=== PATIENT | male | born 1950 | race Caucasian/White ===

== ENCOUNTER → 2016-12-28 | Outpatient (CLI) | payer MEDICARE, OTHER | LOC: RAD 07:56 | PROVIDERS: ATTEND Specialist | DX: K76.89 Other specified diseases of liver (principal); R16.1 Splenomegaly, not elsewhere classified | CPT/HCPCS: 76705; 93976 ==

== ENCOUNTER 2017-01-09 08:25 | Day surgery (SDC) | payer MEDICARE, OTHER ==
[2017-01-09 09:24] LABS: PARTIAL THROMBOPLASTIN TIME 30.9 SEC (23.5-35.8)
[2017-01-09 09:26] LABS: HEMATOCRIT 34.5 % (37.9-51.0); HEMOGLOBIN 11.9 g/dL (13.5-17.0); HGB HCT DIFFERENCE 1.2; MEAN CORPUSCULAR HEMOGLOBIN 34.3 pg (27.0-33.4); MEAN CORPUSCULAR HGB CONC 34.6 g/dL (32.0-36.0); MEAN CORPUSCULAR VOLUME 99 fl (80-97); RED BLOOD COUNT 3.47 10^6/uL (4.35-5.55); RED CELL DISTRIBUTION WIDTH 13.8 % (11.5-14.0); WHITE BLOOD COUNT 2.4 10^3/uL (4.0-10.5)
[2017-01-09 09:37] LABS: BLOOD UREA NITROGEN 19 mg/dL (7-20); CREATININE RESULT 0.84 mg/dL (0.52-1.25)
[2017-01-09] MEDS ORDERED: FENTANYL CITRATE INJ/PF 100 MCG/2 ML AMPUL ONE (10:46)
[2017-01-09] MEDS ORDERED: MIDAZOLAM 2 MG/2 ML INJ ONE (10:46)
[2017-01-09 13:03] VITALS: BP 115/76
== END 2017-01-09 13:10 | disposition home or self-care (01) ==
LOC: RAD 08:25
PROVIDERS: ATTEND Specialist
PROC: 0FB13ZX Excision of Right Lobe Liver, Percutaneous Approach, Diagnostic (ICD-10-PCS; principal; 2017-01-09)
DX: K75.81 Nonalcoholic steatohepatitis (NASH) (principal); K74.0 Hepatic fibrosis
CPT/HCPCS: 36415; 82962; 84520; 82565; 85027; 85610; 85730; 88307 ×2; 88313 ×2; 77012; 47000; J2250; J3010

== ENCOUNTER → 2018-04-07 | Outpatient (CLI) | payer MEDICARE, OTHER ==
--- NOTE | 2018-04-07 09:25 | RADIOLOGY REPORT (SQ) ---
EXAM DESCRIPTION: U/S ABDOMEN LTD W/DOPPLER COMPLETED DATE/TIME: 04/07/2018 9:07 am REASON FOR STUDY: LIVER DISORDER, SPLENOMEGALY R16.1 SPLENOMEGALY, NOT ELSEWHERE CLASSIFIED K76.89 OTHER SPECIFIED DISEASES OF LIVER COMPARISON: 12/28/2016 TECHNIQUE: Dynamic and static grayscale images acquired of the abdomen and recorded on PACS. Additio nal selected color Doppler and spectral images recorded. LIMITATIONS: None. FINDINGS: PANCREAS: No masses. Visualized pancreatic duct normal caliber. LIVER: Heterogenous increased coarsened echotexture to the liver, likely related to the patient's kn own history of liver disease. The liver measures 16.7 cm, within upper limits of normal. LIVER VASCULATURE: Normal directional flow of the main portal vein and hepatic veins. GALLBLADDER: No stones. The gallbladder wall measures 3.0 mm, upper limits of normal wall thickness . No pericholecystic fluid. ULTRASOUND-DETECTED PAZ'S SIGN: Negative. INTRAHEPATIC DUCTS AND COMMON DUCT: CBD measures 3.0 mm in diameter, normal. The intrahepatic ducts normal caliber. No filling defects. INFERIOR VENA CAVA: Normal flow. AORTA: No aneurysm. RIGHT KIDNEY: The right kidney measures 12.1 cm in length, normal size. Normal echogenicity. No silvano d or suspicious masses. No hydronephrosis. No calcifications. PERITONEAL AND RIGHT PLEURAL SPACE: No ascites or effusions. OTHER: No other significant findings. IMPRESSION: 1 No significant interval changes since the prior examination dated 12/28/2016. 2. Heterogenous increased coarsened echotexture to the liver parenchyma, likely related to the patien t's underlying history of liver disease. TECHNICAL DOCUMENTATION: JOB ID: [id number] [employer] All Rights Reserved Reading location - IP/workstation name: [email or web address]
== END ==
LOC: RAD 08:32
PROVIDERS: ATTEND Internal Medicine Hematology & Oncology
DX: R16.1 Splenomegaly, not elsewhere classified (principal); K76.89 Other specified diseases of liver
CPT/HCPCS: 76705; 93976

== ENCOUNTER → 2018-04-15 | Outpatient (CLI) | payer MEDICARE, OTHER ==
--- NOTE | 2018-04-15 12:18 | RADIOLOGY REPORT (SQ) ---
EXAM DESCRIPTION: CT SOFT TISSUE NECK WITH COMPLETED DATE/TIME: 04/15/2018 10:49 am REASON FOR STUDY: DYSPHAGIA (R13.10), DYSPHONIA (R49.0) R13.10 DYSPHAGIA, UNSPECIFIED R49.0 DYSPHO MANDY COMPARISON: None. TECHNIQUE: Post IV contrasted scanning from skull base through lung apices with review of bone, soft tissue and lung windows. Reconstructed coronal and sagittal MPR images reviewed. All images stored on PACS. All CT scanners at this facility use dose modulation, iterative reconstruction, and/or weight based d osing when appropriate to reduce radiation dose to as low as reasonably achievable (ALARA). [facility]: Dose Right [facility]: CareDose [facility]: Dose Right [facility]: Teradose 4D [facility]: [place] CONTRAST TYPE AND DOSE: contrast/concentration: Isovue 370.00 mg/ml; Total Contrast Delivered: 75.0 ml; Total Saline Delivered: 55.0 ml RENAL FUNCTION: Creatinine 0.8 RADIATION DOSE: . LIMITATIONS: None. FINDINGS: SKULL BASE: Intact. MAJOR SALIVARY GLANDS: No solid or cystic masses. No inflammatory changes. LYMPHADENOPATHY: No adenopathy. MUCOSAL MASSES OR ASYMMETRY: No mucosal masses or asymmetry. LARYNX/CORDS: No abnormal findings. VASCULAR STRUCTURES: The major vessels are patent. LUNG APICES: Clear. BONES: Bony structures are osteopenic with bony ankylosis of the mid cervical vertebra. THYROID: Normal size. No masses. PARANASAL SINUSES: Clear. OTHER: No other significant finding. IMPRESSION: NO SIGNIFICANT FINDING IN THE SOFT TISSUES OF THE NECK. TECHNICAL DOCUMENTATION: JOB ID: [id number] Quality ID # [id number]: Final reports with documentation of one or more dose reduction techniques (e.g., Au tomated exposure control, adjustment of the mA and/or kV according to patient size, use of iterative reconstruction technique) 2010 [employer]- All Rights Reserved Reading location - IP/workstation name: [email or web address]
== END ==
LOC: RAD 10:14
PROVIDERS: ATTEND Internal Medicine Hematology & Oncology
DX: R13.10 Dysphagia, unspecified (principal); R49.0 Dysphonia
CPT/HCPCS: 70491

== ENCOUNTER → 2019-03-31 | Outpatient (CLI) | payer MEDICARE, OTHER ==
--- NOTE | 2019-03-31 12:44 | RADIOLOGY REPORT (SQ) ---
EXAM DESCRIPTION: MRI CERVICAL SPINE WITHOUT COMPLETED DATE/TIME: 03/31/2019 9:17 am REASON FOR STUDY: M50.30 OTHER CERVICAL DISC DEGENERATION, UNSP CERVICAL REGION M50.30 OTHER CERVIC AL DISC DEGENERATION, UNSP CERVICAL REGIO COMPARISON: 06/23/2016 TECHNIQUE: Sagittal and Axial imaging includes T1, T2, STIR and gradient echo sequences. LIMITATIONS: None. FINDINGS: ALIGNMENT: Normal. VERTEBRAE: Hemangiomas C3. BONE MARROW: Normal. No marrow replacement or reactive changes. DISCS: Loss of height and T2 signal C5-6. HARDWARE: None in the spine. CORD AND BASE OF BRAIN: Normal in size and signal intensity. SOFT TISSUES: No soft tissue masses. C1-C2: No significant spinal stenosis. C2-C3: Central disc osteophyte with mild flattening of the anterior thecal sac. C3-C4: Central disc on supra with mild anterior flattening of the thecal sac. C4-C5: No significant spinal stenosis or exit foraminal stenosis. C5-C6: Disc osteophyte complex more prominent peripheral. Mild narrowing of the left exit foramina. C6-C7: No significant spinal stenosis or exit foraminal stenosis. C7-T1: No significant spinal stenosis or exit foraminal stenosis. UPPER THORACIC: Incompletely imaged. No significant spinal stenosis or exit foraminal stenosis. OTHER: No other significant finding. IMPRESSION: Multilevel mild spondylosis. No significant spinal stenosis or exit foraminal stenosis. TECHNICAL DOCUMENTATION: JOB ID: [id number] [employer]- All Rights Reserved Reading location - IP/workstation name: [email or web address]
== END ==
LOC: RAD 08:38
PROVIDERS: ATTEND Physician Assistant
DX: M50.30 Other cervical disc degeneration, unspecified cervical region (principal); M47.892 Other spondylosis, cervical region
CPT/HCPCS: 72141

== ENCOUNTER 2020-07-18 09:39 | Day surgery (SDC) | payer MEDICARE, OTHER ==
[~2020-07-18 09:39] MED LIST: KETOROLAC TROMETHAMINE 0.45% 4 DROP/0.4 ML DROPERETTE OD PRN; LIDOCAINE 3.5% OPH GEL/PF 1 ML/TUBE OD PRN
[2020-07-18] MEDS ORDERED: MIDAZOLAM 2 MG/2 ML INJ ONE (10:22)
[2020-07-18] MEDS: TROPICAMIDE 1% OPH SOLN 15 ML OD PRN ×3 (11:14→11:38)
[2020-07-18] MEDS: TETRACAINE HCL 0.5% OPH SOLN 4 ML OD PRN ×3 (11:14→11:50)
[2020-07-18] MEDS: CYCLOPENTOLATE 0.2%/PHENYLEPHRINE 1% OPH SOLN 2 ML OD PRN ×3 (11:15→11:38)
[2020-07-18] MEDS: BESIFLOXACIN HCL 0.6% OPH SUSP 5 ML BOTTLE OD PRN ×4 (11:15→12:15)
[2020-07-18] MEDS: EPINEPHRINE INJ/PF 1 MG/1 ML AMPULE ONE ×2 (11:56→12:02)
[2020-07-18] MEDS: DORZOLAMIDE HCL 2%/TIMOLOL MALEAT 0.5% OPH SOLN 10 ML OD PRN ×2 (11:56→12:15)
[2020-07-18] MEDS: CHONDR SU A NA/HYALUR INTRAOC KIT (SURGICARE) ONE ×2 (11:56→12:02)
[2020-07-18] MEDS: LIDOCAINE 1%/PHENYLEPHRINE 1.5% 1 ML VIAL ONE ×2 (11:56→12:02)
--- NOTE | 2020-07-25 18:53 | Operative Report ---
Operative Report[facility] Operative Report: PREOPERATIVE DIAGNOSIS: Nuclear, cortical and posterior subcapsular cataract, right eye POSTOPERATIVE DIAGNOSIS: Nuclear, cortical and posterior subcapsular cataracts, right eye PROCEDURE: Phacoemulsification and posterior chamber intraocular lens implant, right eye PROCEDURE DATE: [July 18, 2020 ] SURGEON: Sarbjit Tafoya MD Next CENTRAL OFFICE EQUIPMENT ENGINEER: [] ANESTHESIA: Topical with IV sedation next COMPLICATIONS: None TISSUE TO PATHOLOGY: None ESTIMATED BLOOD LOSS: None INDICATION FOR SURGERY: [Mr. Moser is a 69 year old male] Who presents to our clinic complaining of difficulty seeing, to read and drive due to blurry vision in both eyes. On examination, she was found to have best corrected visual acuity of [20/30] in the right eye. Ophthalmoscopy revealed a [+2] nuclear, [+2] corneal degeneration, [trace] posterior subcapsular cataract in the right eye with normal appearing cornea, vitreous, retina and optic nerve. I discussed the findings of the exam with the patient. We discussed the risks, benefits and alternatives of cataract extraction and intraocular lens implant in the right eye as a means of improving her vision. Risks that were discussed with the patient include infection, bleeding, retinal detachment and possible need for additional surgery. The patient understands that she may need to wear glasses after surgery. After discussion, the patient indicated her interest in having this procedure performed by signing an informed witness consent form. REPORT OF PROCEDURE: On the day of surgery, the patient was given a topical application to the right eye to consist of drop of Tetracaine 0.5%, tropicamide 1%, Cyclomidril, Besivance 0.6% and Acular 0.45%. The patient was then taken to the operating room in a supine position in a standard eye bed. Intravenous sedation was administered and she was prepped and draped in the standard fashion. A timeout was performed to confirm the surgical site. Attention was directed to the right eye where a paracentesis was created at the 11:30 position at the corneal limbus with a 15 degree blade. The anterior chamber was filled with 0.3 mL of 1% methylparaben free lidocaine and after 30 seconds the anterior chamber was filled with viscoelastic material. A 3 plane corneal incision was then made at the 9 o'clock position at the cornea limbus with a keratome. A continuous curvilinear capsulorrhexis was then made in the anterior capsule of the lens with a cystotome. The lens was hydrodissected using balanced saline solution. The lens nucleus was then removed by phacoemulsification using the stop and chop technique. CDE [5.91 ]. The remaining cortical material was then removed from the posterior capsular bag using irrigation and aspiration. The posterior capsule bag was filled with viscoelastic material and a lens implant was inserted into the posterior capsule bag. I have chosen for this case is a one piece acrylic lens from [employer] model [[id number]], serial number [[id number]], lens power [25.0] The lens was removed from its package, inspected and found to be free of defects it was loaded into a [employer] D inse rter. The spooling operator was passed through the temporal wound and the lens was advanced into the posterior capsular bag. The lens implant was centered in the posterior capsular bag with the [place] spatula the viscoelastic material was removed from the eye using irrigation and aspiration. The wounds were closed by stromal hydration and they were tested with the Weck-Galina sponges and found to have no leaks. Intraocular pressure was assessed by manual palpitation found to be with in the physiologic range. The drape and speculum were removed. Drops of Durezol, Combigan and gatifloxacin were instilled in the right eye. The patient was then taken to the recovery room in good condition. The patient tolerated the procedure very well. The patient was given a prescription for gatifloxacin, Durezol and Ilervo to use every 2 hours while awake today. She will return my clinic tomorrow for follow-up evaluation.
== END 2020-07-18 12:57 | disposition home or self-care (01) ==
LOC: SC 09:39
PROVIDERS: ATTEND Ophthalmology
DX: H25.811 Combined forms of age-related cataract, right eye (principal); H53.022 Refractive amblyopia, left eye; I48.91 Unspecified atrial fibrillation; E11.36 Type 2 diabetes mellitus with diabetic cataract; E03.9 Hypothyroidism, unspecified; Z79.84 Long term (current) use of oral hypoglycemic drugs; Z79.899 Other long term (current) drug therapy
CPT/HCPCS: 66984; 00142; V2632; J2250; J3490 ×2; A9270; J0171; 142

== ENCOUNTER 2020-08-04 10:52 | Day surgery (SDC) | payer MEDICARE, OTHER ==
[~2020-08-04 10:52] MED LIST changes: +CHONDR SU A NA/HYALUR INTRAOC KIT (SURGICARE) ONE; +EPINEPHRINE INJ/PF 1 MG/1 ML AMPULE ONE; -KETOROLAC TROMETHAMINE 0.45% 4 DROP/0.4 ML DROPERETTE OD PRN; +KETOROLAC TROMETHAMINE 0.45% 4 DROP/0.4 ML DROPERETTE OS PRN; +LIDOCAINE 1%/PHENYLEPHRINE 1.5% 1 ML VIAL ONE; -LIDOCAINE 3.5% OPH GEL/PF 1 ML/TUBE OD PRN; +LIDOCAINE 3.5% OPH GEL/PF 1 ML/TUBE OS PRN
[2020-08-04] MEDS: TETRACAINE HCL 0.5% OPH SOLN 4 ML OS PRN ×3 (11:10→11:54)
[2020-08-04] MEDS: TROPICAMIDE 1% OPH SOLN 15 ML OS PRN ×3 (11:10→11:29)
[2020-08-04] MEDS: CYCLOPENTOLATE 0.2%/PHENYLEPHRINE 1% OPH SOLN 2 ML OS PRN ×3 (11:11→11:29)
[2020-08-04] MEDS: BESIFLOXACIN HCL 0.6% OPH SUSP 5 ML BOTTLE OS PRN ×4 (11:11→12:16)
[2020-08-04] MEDS ORDERED: FENTANYL CITRATE INJ/PF 100 MCG/2 ML AMPUL ONE (11:24)
[2020-08-04] MEDS ORDERED: MIDAZOLAM 2 MG/2 ML INJ ONE (11:24)
[2020-08-04] MEDS: PREDNISOLONE ACETATE 1% OPH SUSP 5 ML OS PRN ×2 (12:16)
[2020-08-04] MEDS: DORZOLAMIDE HCL 2%/TIMOLOL MALEAT 0.5% OPH SOLN 10 ML OS PRN ×2 (12:16)
--- NOTE | 2020-08-04 20:16 | Operative Report ---
Operative Report[facility] Operative Report: PREOPERATIVE DIAGNOSIS: Nuclear, cortical and posterior subcapsular cataract, left eye POSTOPERATIVE DIAGNOSIS: Nuclear, cortical and posterior subcapsular cataracts, left eye PROCEDURE: Phacoemulsification and posterior chamber intraocular lens implant, left eye PROCEDURE DATE: [August 04, 2020] SURGEON: Sarbjit Tafoya MD Next REGISTERED VASCULAR TECHNOLOGIST (RVT): [Keo Zarate] ANESTHESIA: Topical with IV sedation next COMPLICATIONS: None TISSUE TO PATHOLOGY: None ESTIMATED BLOOD LOSS: None INDICATION FOR SURGERY: [Mr. Moser is a 69 year old male] Who presents to our clinic complaining of difficulty seeing, to read and drive due to blurry vision in both eyes. On examination, she was found to have best corrected visual acuity of [20/200] in the left eye. Ophthalmoscopy revealed a [+2] nuclear, [+2] corneal degeneration, [trace] posterior subcapsular cataract in the left eye with normal appearing cornea, vitreous, retina and optic nerve. I discussed the findings of the exam with the patient. We discussed the risks, benefits and alternatives of cataract extraction and intraocular lens implant in the left eye as a means of improving her vision. Risks that were discussed with the patient include infection, bleeding, retinal detachment and possible need for additional surgery. The patient understands that she may need to wear glasses after surgery. After discussion, the patient indicated her interest in having this procedure performed by signing an informed witness consent form. REPORT OF PROCEDURE: On the day of surgery, the patient was given a topical application to the left eye to consist of drop of Tetracaine 0.5%, tropicamide 1%, Cyclomidril, Besivance 0.6% and Acular 0.45%. The patient was then taken to the operating room in a supine position in a standard eye bed. Intravenous sedation was administered and she was prepped and draped in the standard fashion. A timeout was performed to confirm the surgical site. Attention was directed to the left eye where a paracentesis was created at the 5:30 position at the corneal limbus with a 15 degree blade. The anterior chamber was filled with 0.3 mL of 1% methylparaben free lidocaine and after 30 seconds the anterior chamber was filled with viscoelastic material. A 3 plane corneal incision was then made at the 3 o'clock position at the cornea limbus with a keratome. A continuous curvilinear capsulorrhexis was then made in the anterior capsule of the lens with a cystotome. The lens was hydrodissected using balanced saline solution. The lens nucleus was then removed by phacoemulsification using the stop and chop technique. CDE [6.79 ]. The remaining cortical material was then removed from the posterior capsular bag using irrigation and aspiration. The posterior capsule bag was filled with viscoelastic material and a lens implant was inserted into the posterior capsule bag. I have chosen for this case is a one piece acrylic lens from [employer] model [[id number]], serial number [[id number]], lens power [25.0]. The lens was removed from its package, inspected and found to be free of defects it was loaded into a [employer] D bruise trimmer. The bruise trimmer was passed through the temporal wound and the lens was advanced into the posterior capsular bag. The lens implant was centered in the posterior capsular bag with the [place] spatula the viscoelastic material was removed from the eye using irrigation and aspiration. The wounds were closed by stromal hydration and they were tested with the Weck-Galina sponges and found to have no leaks. Intraocular pressure was assessed by manual palpitation found to be with in the physiologic range. The drape and speculum were removed. Drops of Durezol, Combigan and gatifloxacin were instilled in the left eye. The patient was then taken to the recovery room in good condition. The patient tolerated the procedure very well. The patient was given a prescription for gatifloxacin, Durezol and Ilervo to use every 2 hours while awake today. She will return my clinic tomorrow for follow-up evaluation.
--- OUTSIDE RECORDS SUMMARY | 2020-08-05 15:19 | XMS REPORT ---
:1950 [facility] [place] [facility] [place] [address] [place] [id number] Care Team Providers Name Role Phone Unavailable Unavailable Unavailable Allergies, Adverse Reactions, Alerts This patient has no known allergies or adverse reactions. Medications Ordered Filled Start Stop Current Ordering Indication Dosage Frequency Signature Comments Components Medication Medication Date Date Medication? Clinician (SIG) Name Name fenofibrate No 1capsul Q1D fenofibrat micronized e(s) e 200 mg micronized capsule 200 mg Take 1 capsule capsule Take 1 every day capsule by oral every day route for by oral 30 days. route for 30 days. glimepiride No 1 Q1D glimepirid 2 mg tablet e 2 mg Take 1 tablet tablet Take 1 every day tablet by oral every day route for by oral 90 days. route for 90 days. pioglitazon No 1 Q1D pioglitazo e 30 mg ne 30 mg tablet Take tablet 1 tablet Take 1 every day tablet by oral every day route for by oral 30 days. route for 30 days. tramadol 50 No tramadol mg tablet 50 mg PRN tablet PRN alfuzosin No alfuzosin ER 10 mg ER 10 mg tablet,exte tablet,ext nded ended release 24 release 24 hr hr Problems Condition Condition Condition Status Onset Resolution Last Treatin g Comments Name Details Category Date Date Treatment Clinician Date Atrial Atrial Problem Active fibrillatio Fibrillatio 05-24 n n 00:00: 00 Neck pain Neck Pain Problem Active 05-24 00:00: 00 Chronic Chronic Problem Active back pain Back Pain 05-24 00:00: 00 Prediabetes Prediabetes Problem Active 05-24 00:00: 00 Closed Closed Problem Active fracture of Fracture of 05-24 lateral Lateral 00:00: malleolus Malleolus 00 of left of Left fibula Fibula Procedures Procedure Date / Time Performed Performing Clinician Selena peters XR, ankle 2020-07-13 00:00:00 RADIOLOGIC EXAM ANKLE 2 VIEWS 2020-06-15 00:00:00 XR, ankle 2020-06-07 00:00:00 RADIOLOGIC EXAM TIBIA AND FIBULA 2 2020-05-24 00:00:00 VIEWS Laminotomy 1988-09-23 00:00:00 Results This patient has no known results. Assessments Condition Name Status Diagnosis Date Treating Clinici an Closed fracture of lateral malleolus of Active 09:02:06 right fibula Closed fracture of lateral malleolus of Active 12:56:56 right fibula Closed fracture of lateral malleolus of Active 11:51:36 right fibula Closed fracture of lateral malleolus of Active 09:18:28 left fibula Pain in left lower limb Active 2020-05-24 08:18:41 Encounters Start End Encounter Admission Attending Care Care Encounter Date/Time Date/Time Type Type Clinicians Facility Department ID 2020-07-13 2020-07-13 Dilip Faith [id number] 00:00:00 00:00:00 [facility] [id number] [facility] DO: [address], [address], [place] [address] , Ph. 2020-06-15 2020-06-15 Dilip Faith [id number] 00:00:00 00:00:00 [facility] [id number] [facility] DO: [address], [address], [place] [address] , Ph. 2020-06-07 2020-06-07 Dilip Faith [id number] 00:00:00 00:00:00 [facility] [id number] [facility] DO: [address], [address], [place] [address] , Ph. 2020-05-24 2020-05-24 Dilip Faith [id number] 00:00:00 00:00:00 [facility] [id number] [facility] DO: [address], [address], [place] [address] , Ph. Plan of Treatment Planned Activity Planned Date Details Comments Future Appointment 2020-08-23 10:30:00 Dilip Lubin, [address] [facility]; [address], [place] [address] Social History Smoking Status Start Date Stop Date Never Smoker Vital Signs Vital Name Observation Time Observation Value Comments Height 2020-07-13 00:00:00 72 [in_i] Height 2020-06-15 00:00:00 72 [in_i] Height 2020-06-07 00:00:00 72 [in_i] BMI (Body Mass Index) 2020-06-07 00:00:00 29.8 kg/m2 Body Weight 2020-06-07 00:00:00 220 [lb_av] Height 2020-05-24 00:00:00 72 [in_i] BMI (Body Mass Index) 2020-05-24 00:00:00 29.8 kg/m2 Body Weight 2020-05-24 00:00:00 220 [lb_av] Hospital Discharge Instructions 1. Pain in left lower limb XR, tibia + fibula, 2 view 2. Closed fracture of lateral malleolus ofleft fibula Discussion Note: None recorded. Patient educational handouts: No information available.
== END 2020-08-04 12:50 | disposition home or self-care (01) ==
LOC: SC 10:52
PROVIDERS: ATTEND Ophthalmology
DX: H25.812 Combined forms of age-related cataract, left eye (principal); E11.36 Type 2 diabetes mellitus with diabetic cataract; I48.91 Unspecified atrial fibrillation; Z79.84 Long term (current) use of oral hypoglycemic drugs
CPT/HCPCS: 66984; 82962; V2632; J2250; J3490 ×2; A9270; J0171; J3010